=== PATIENT | female | born 1955 | race Caucasian/White ===

== ENCOUNTER → 2017-11-27 21:38 | Outpatient (CLI) | payer MEDICAID | END | disposition home or self-care (01) | LOC: D.MAMMO 15:30 | DX: Z12.31 Encounter for screening mammogram for malignant neoplasm of breast (principal) ==

== ENCOUNTER → 2017-12-25 08:22 | Outpatient (CLI) | payer MEDICAID ==
[~2017-12-25] VITALS: Ht 167.6 cm; Wt 53.1 kg
[2017-12-25 09:32] VITALS: Ht 167.6 cm; Wt 53.1 kg
== END | disposition home or self-care (01) ==
LOC: D.FANS 08:22
DX: R63.4 Abnormal weight loss (principal)

== ENCOUNTER → 2019-01-02 10:00 | Outpatient (CLI) | payer MEDICAID ==
[2017-12-25 09:32] VITALS: BMI 18.8
== END | disposition home or self-care (01) ==
LOC: D.MAMMO 10:00
PROVIDERS: ATTEND Family Medicine
DX: Z12.31 Encounter for screening mammogram for malignant neoplasm of breast (principal)

== ENCOUNTER 2019-12-21 19:00 | Outpatient (CLI) | payer MEDICAID ==
[2017-12-25 09:32] VITALS: BMI 18.8
== END 2019-12-21 23:59 | disposition home or self-care (01) ==
LOC: D.MAMMO 19:00
PROVIDERS: ATTEND Family Medicine
DX: Z12.31 Encounter for screening mammogram for malignant neoplasm of breast (principal)